=== PATIENT | female | born 1955 | race African-American/Black ===

== ENCOUNTER 2024-09-23 08:48 | Emergency (ER) | payer OTHER, SELFPAY ==
[2024-09-23 08:51] VITALS: BP 178/94
--- NOTE | 2024-09-23 10:02 | ED.GENMED ---
History of Present Illness
<Corinne Perez MD, Resident - Last Filed: 09/23/24 13:38>
General
Chief Complaint: Head Injury
Time Seen by Provider: 09/23/24 09:33
History of Present Illness
History of Present Illness:
This is a 68-year-old female who presents to the ER after a fall episode this morning. Patient reports she was at [employer] this morning, and while trying kind of grab a box from the bottom of the shelf, her knees got weak, and she fell over
backwards hitting the left side of her head on the floor. She denied any dizziness, lightheadedness episode prior to the fall. Patient reports she has chronic generalized weakness ongoing for the past 3 months which is currently been worked up for
myositis outpatient by her PCP. Patient states an MRI has been done. Patient reports weakness episode started after she was initiated on Ozempic for weight loss and diabetes. At bedside today, she reports left scalp pain and swelling secondary to
the fall. She has had no other falls in the past year. In addition, EMS reports Blood glucose of 312 this morning.
Past History
<Corinne Perez MD, Resident - Last Filed: 09/23/24 13:38>
Past History
ED Past Medical History: IDDM
ED Past Surgical History: None
Social History
Tobacco: Non-smoker
Alcohol: None
Drug: None
Review of Systems
<Corinne Perez MD, Resident - Last Filed: 09/23/24 13:38>
Review of Systems
All Other Systems: ROS reviewed and negative except as documented in HPI and ROS
Phy Exam
<Corinne Perez MD, Resident - Last Filed: 09/23/24 13:38>
General Physical Exam
General Presentation: well appearing and no apparent distress
Cardiovascular Exam
Cardiovascular Exam: regular rate/rhythm and no edema
Pulmonary Exam
Pulmonary Exam: lungs clear and no respiratory distress
Neurological Exam
Neurological Exam: alert, oriented x3 and normal gait
Musculoskeletal Exam
Musculoskeletal Exam: full ROM
Skin Exam
Skin Exam: other (Left sided scalp swollen, tender to palpation)
Psychiatric Exam
Psychiatric Exam: normal mood/affect
Course
<Corinne Perez MD, Resident - Last Filed: 09/23/24 13:38>
Orders/Labs/Results
Orders:
Orders
09/23/24 08:[address] [CT Head W/o Iv Contrast] Urgent
Comment:
Reason For Exam: fall with head strike
09/23/24 10:24
Ibuprofen [Motrin] 600 mg PO NOW STA
09/23/24 10:43
Complete Blood Count/With Diff Urgent
09/23/24 11:45
Basic Metabolic Panel Urgent
Abnormal Lab Results
09/23/24 09/23/24
10:43 11:45
Abs Immat Gran (auto) 0.1 H 10^3/uL
(0-0.05)
Absolute Neuts (auto) 7.2 H 10^3/uL
(1.4-6.5)
Immature Gran % 0.9 H %
(0-0.5)
Neutrophils % 77.3 H %
(42.2-75.2)
Lymphocytes % 17.6 L %
(20.5-51.1)
Glucose 241 H mg/dl
(70-99)
09/23/24 10:43
09/23/24 11:45
Vital Signs
Initial and Last Documented VS:
Initial Vital Signs
Temp Pulse Resp BP Pulse Ox
98.7 F 97 18 178/94 100
09/23/24 08:51 09/23/24 08:51 09/23/24 08:51 09/23/24 08:51 09/23/24 08:51
Last Documented Vital Signs
Temp Pulse Resp BP Pulse Ox
98.7 F 97 18 148/88 100
09/23/24 08:51 09/23/24 08:51 09/23/24 08:51 09/23/24 13:00 09/23/24 08:51
<Tristan Garcia, DO - Last Filed: 09/23/24 11:09>
Orders/Labs/Results
Orders:
Orders
09/23/24 08:[address] [CT Head W/o Iv Contrast] Urgent
Comment:
Reason For Exam: fall with head strike
09/23/24 10:24
Ibuprofen [Motrin] 600 mg PO NOW STA
09/23/24 10:43
Complete Blood Count/With Diff Urgent
09/23/24 11:45
Basic Metabolic Panel Urgent
Abnormal Lab Results
09/23/24 09/23/24
10:43 11:45
Abs Immat Gran (auto) 0.1 H 10^3/uL
(0-0.05)
Absolute Neuts (auto) 7.2 H 10^3/uL
(1.4-6.5)
Immature Gran % 0.9 H %
(0-0.5)
Neutrophils % 77.3 H %
(42.2-75.2)
Lymphocytes % 17.6 L %
(20.5-51.1)
Glucose 241 H mg/dl
(70-99)
09/23/24 10:43
09/23/24 11:45
Vital Signs
Initial and Last Documented VS:
Initial Vital Signs
Temp Pulse Resp BP Pulse Ox
98.7 F 97 18 178/94 100
09/23/24 08:51 09/23/24 08:51 09/23/24 08:51 09/23/24 08:51 09/23/24 08:51
Last Documented Vital Signs
Temp Pulse Resp BP Pulse Ox
98.7 F 97 18 148/88 100
09/23/24 08:51 09/23/24 08:51 09/23/24 08:51 09/23/24 13:00 09/23/24 08:51
<Corinne Perez MD, Resident - Last Filed: 09/23/24 13:38>
MDM/Problems Addressed
MDM/Problems Addressed:
68-year-old female presents to the ED after a fall episode. Patient reports weakness of lower extremity while trying to lift something from the bottom of a shelf causing her to fall backwards and hit her head. CT scan of head- no acute
intracranial abnormalities. Small left parietal scalp hematoma present on CT scan. Given generalized weakness, will check CBC, BMP.
Updates: BMP unremarkable except a glucose level of 241. Patient reports she's currently on prednisone for generalized muscle weakness. Educated on blood sugar control prior to discharge. Recommended adherence to diabetic diet, and follow up with
PCP for further workup of generalized weakness.
<Tristan Garcia, - Last Filed: 09/23/24 11:09>
*Radiology
Radiology exam reviewed: radiology read reviewed
*Pulse Oximetry
Patient hypoxic: no
*Critical Care Note
Total Time (30-74mins, 75-104mins- exclusive of procedures): Not Applicable
Data Reviewed
Source: patient and family (Son states that her blood sugars have been higher)
ED Attending Note
<Corinne Perez MD, Resident - Last Filed: 09/23/24 13:38>
-
Portions of this chart may have been created with voice recognition software.� Occasional wrong word or��sound alike� substitutions may have occurred due to the inherent limitations of voice recognition software.
<Tristan Garcia DO - Last Filed: 09/23/24 11:09>
ED Attending Note
Patient seen and examined by attending physician: Yes
I performed a history and physical exam of patient and discussed management with resident, I reviewed resident's note and agree with documented findings and plan of care.: Yes
ED Attending Note:
60-year-old female presents after head injury. Patient went to reach for something off the bottom shelf and fell over. She hit the back left side of her head. She denies vision changes or motor weakness. She does admit to generalized muscle
weakness that is being evaluated by a specialist. In fact she has been put on steroids for it. She is scheduled for biopsy in the future. Exam: Awake and alert, hematoma noted to left posterior scalp but no open skin wounds. Nonfocal neuroexam.
Midline lumbar, thoracic and cervical spine are nontender. Assessment plan: Check labs in light of generalized weakness but if negative anticipate continued outpatient management. Patient counseled on the importance of proper diet with regard to
blood sugar control and the fact that prednisone can increase her blood sugar. She is aware and will follow-up with her PCP
Discharge Plan
Departure
Patient Disposition: Home (Routine Discharge)
Date of Disposition: 09/23/24
Time of Disposition: 12:51
Patient with high blood pressure during this ER visit?: Yes
Discharge Problem:
Head injury, Hyperglycemia
Instructions: Diabetes and diet
Referrals:
Erika Watkins CRNP [Family Provider] -
Activity Restrictions/Additional Instructions:
Please return for any worsening symptoms.
You may return at any time if you have further concerns.
Please follow up with your doctor at the next available appointment
I Recommend adherence to an appropriate diabetic diet to help control blood sugar levels.
Thank you for choosing [facility].
Interventions
Interventions:
*Risk Screen - Suicide Last Done: 09/23/24 08:51
*General Assessment Last Done: 09/23/24 08:51
*Neglect/Abuse Screening Last Done: 09/23/24 08:51
*ED- Fall Risk Assessment Last Done: 09/23/24 10:50
*ED COVID-19 Vaccine History Last Done: 09/23/24 10:50
ED- Neurological Assessment Last Done: 09/23/24 10:50
ED-Skin Assessment Last Done: 09/23/24 10:50
Discharge Date and Time
Print Language: TURKISH
[2024-09-23] MEDS: MOTRIN 600 MG PO (10:40)
[2024-09-23 10:58] LABS: % Basophils 0.2 % (0-2); % Eosinophils 0.1 % (0-6); % Immature Granulocytes 0.9 % (0-0.5); % Lymphocytes 17.6 % (20.5-51.1); % Monocytes 3.9 % (1.7-9.3); % Neutrophils 77.3 % (42.2-75.2); Absolute Immature Granulocytes 0.1 10^3/uL (0-0.05); Absolute Lymphocytes 1.6 10^3/uL (1.2-3.4); Absolute Monocytes 0.4 10^3/uL (0.1-0.6); Absolute Neutrophils 7.2 10^3/uL (1.4-6.5); Hemoglobin 12.9 g/dL (12.0-16.0); Mean Corp Hgb Conc. 33.9 g/dL (33.0-37.0); Mean Corpuscular Hgb 30.6 pg (27.0-31.0); Mean Corpuscular Volume 90.3 fL (81.0-99.0); Mean Platelet Volume 9.2 fL (7.4-10.4); Nucleated Red Blood Cells % 0 %; Platelet Count 317 10^3/uL (130-400); Red Blood Cell Count 4.21 10^6/uL (4.20-5.40); Red Cell Dist. Width 13.1 % (11.5-14.5); White Blood Cell Count 9.3 10^3/uL (4.8-10.8)
[2024-09-23 12:50] LABS: Blood Urea Nitrogen 16 mg/dl (7-17); Carbon Dioxide 27 mmol/L (22-30); Chloride 103 mmol/L (98-107); Glucose 241 mg/dl (70-99); Potassium 4.6 mmol/L (3.5-5.1); Sodium 136 mmol/L (135-145); eGFR > 60.00
[2024-09-23 13:00] VITALS: BP 148/88
== END 2024-09-23 13:42 | disposition home or self-care (01) ==
LOC: EMR 08:48
PROVIDERS: Student in an Organized Health Care Education/Training Program; EMERGENCY PHYSICIAN Emergency Medicine; FAMILY PHYSICIAN Nurse Practitioner
DX: S09.90XA Unspecified injury of head, initial encounter (principal); S00.03XA Contusion of scalp, initial encounter; R53.1 Weakness; W18.30XA Fall on same level, unspecified, initial encounter; Y92.512 Supermarket, store or market as the place of occurrence of the external cause; E11.65 Type 2 diabetes mellitus with hyperglycemia; R03.0 Elevated blood-pressure reading, without diagnosis of hypertension; Z79.4 Long term (current) use of insulin
CPT/HCPCS: 99284; 70450; 80048; 85025